=== PATIENT | female | born 1960 | race Caucasian/White ===

== ENCOUNTER → 2019-05-17 12:11 | Outpatient (BNVA) | payer BC, SELFPAY | PROVIDERS: Family Provider Family Medicine; PCP Internal Medicine Cardiovascular Disease; Visit Provider Internal Medicine Cardiovascular Disease | DX: R06.02 Shortness of breath (principal); I10 Essential (primary) hypertension; R00.2 Palpitations; R01.1 Cardiac murmur, unspecified; R07.9 Chest pain, unspecified | CPT/HCPCS: 80053; 83880; 84443 ==

== ENCOUNTER 2019-05-29 08:06 | Outpatient (CLI) | payer BC, SELFPAY ==
--- NOTE | 2019-05-29 08:00 | USCV_ITS ---
Thai Marci Age: 59 Gender: F : 1960 Exam Date: 05/29/2019 08:30 Ordering Phys: Ruel Joshi MD ([email or web address]) Technologist: Mora Mccullough Exam Location: [facility] [place] Indication: SHORTNESS OF BREATH BP: / HR: 92 Rhythm: Sinus Technical Quality: Adequate MEASUREMENTS (Male / Female) Normal Values 2D ECHO LV Diastolic Diameter PLAX 3.0 cm 4.2 - 5.9 / 3.9 - 5.3 cm LV Systolic Diameter PLAX 2.4 cm IVS Diastolic Thickness 1.5 cm 0.6 - 1.0 / 0.6 - 0.9 cm IVS Systolic Thickness 2.2 cm LVPW Diastolic Thickness 1.6 cm 0.6 - 1.0 / 0.6 - 0.9 cm LVPW Systolic Thickness 1.7 cm LVOT Diameter 2.0 cm LV Ejection Fraction 2D Teich 47.0 % LV Ejection Fraction MOD 2C 61.9 % LV Ejection Fraction 2C AL 63.7 % LA Diameter 3.6 cm LA Width 3.1 cm LA Height 4.8 cm RA Width 2.4 cm RA Height 4.1 cm M-MODE LV Diastolic Diameter MM 5.0 cm 4.2 - 5.9 / 3.9 - 5.3 cm LV Systolic Diameter MM 3.4 cm LV Ejection Fraction MM Teich 61.7 % IVS Diastolic Thickness MM 0.9 cm 0.6 - 1.0 / 0.6 - 0.9 cm IVS Systolic Thickness MM 1.1 cm LVPW Diastolic Thickness MM 0.6 cm 0.6 - 1.0 / 0.6 - 0.9 cm LVPW Systolic Thickness MM 1.3 cm Aortic Annulus Diameter 2.7 cm LA Ao Ratio MM 1.3 MV E Point Septal Separation 0.4 cm DOPPLER AV Peak Velocity 150.0 cm/s LVOT Peak Velocity 115.0 cm/s AV Area Cont Eq vti 2.5 cm squared AV Area Cont Eq pk 2.5 cm squared MV Peak Velocity 74.0 cm/s MV Area PHT 3.7 cm squared Mitral E to A Ratio 0.7 MV E' Velocity 11.0 cm/s Mitral E to MV E' Ratio 5.9 Mitral E to LV E' Lateral Ratio 4.5 Mitral E to LV E' Septal Ratio 8.3 TR Peak Velocity 145.0 cm/s TR Peak Gradient 8.4 mmHg Right Atrial Pressure 3.0 mmHg Pulmonary Artery Systolic Pressu 11.4 mmHg PV Peak Velocity 99.0 cm/s RV Acceleration Time 0.1 s FINDINGS Left Ventricle Normal left ventricular size and systolic function, EF 63 %. Moderate left ventricular hypertrophy. No regional wall motion abnormalities. Right Ventricle Normal right ventricular size and systolic function. Right Atrium Normal right atrial size. Left Atrium Mildly increased left atrial size. Mitral Valve Structurally normal mitral valve. Aortic Valve Thickened aortic valve. [id number] aortic valve regurgitation. Tricuspid Valve Structurally normal tricuspid valve. Pulmonic Valve Pulmonic valve not well visualized. Pericardium No pericardial effusion. Aorta Normal aortic annulus size. CONCLUSIONS Normal left ventricular size and systolic function, EF 63 %. Moderate left ventricular hypertrophy. No regional wall motion abnormalities. Mildly increased left atrial size. Thickened aortic valve. [id number] aortic valve regurgitation. There is no pericardial effusion. There are no intracardiac masses. No previous study is available for comparison. Dr Ruel Joshi MD [facility] (Electronically Signed) Final Date: 29 May 2019 09:47 S
== END 2019-05-29 08:07 | disposition home or self-care (01) ==
PROVIDERS: Family Provider Family Medicine; PCP Family Medicine; Visit Provider Internal Medicine Cardiovascular Disease
DX: I35.1 Nonrheumatic aortic (valve) insufficiency (principal); I51.7 Cardiomegaly; R01.1 Cardiac murmur, unspecified; R06.02 Shortness of breath
CPT/HCPCS: 93306

== ENCOUNTER 2019-07-12 08:16 | Outpatient (CLI) | payer BC, SELFPAY ==
[2019-07-12 08:47] VITALS: BMI 25.6
--- NOTE | 2019-07-12 08:48 | ECG_ITS ---
Lexiscan/sestamibi/sestamibi stress test intraprocedure shortess of breath; Chest pressure.Symptoms resoled by discharge PROCEDURE: At the baseline, the EKG revealed normal sinus rhythm with a some nonspecific ST changes. The baseline blood pressure was 132/87 mm Hg with a heart rate of 71 beats/min. Lexiscan was infused over a period of 20 seconds. A total of 0.4 milligrams of Lexiscan was infused. The stress phase was continued for a total of 5 minutes. Heart rate at the end of the stress phase was 89 with a blood pressure 147/88. The EKG at the peak infusion revealed no significant changes. Sestamibi was injected 20 seconds after the Lexiscan infusion. Blood pressure at the end of the recovery phase was 141/87 with a heart rate of 86 per minute. CONCLUSION: 1. No significant EKG changes with the LexiScan infusion 2. No LexiScan induced chest pain or cardiac arrhythmia 3. Normal blood pressure and heart rate response 4. Sestamibi/sestamibi perfusion scan pending; see separate report. Electronically Signed On 07-13-2019 6:39:19 CDT by Ruel Joshi M.D. [id number]
--- NOTE | 2019-07-12 08:48 | NMCV_ITS ---
NM portia perf SPECT r/s* [id number] Marci Andre Age: 59 Gender: F : 1960 Exam Date: 07/12/2019 08:48 Ordering Phys: Ruel Joshi MD ([email or web address]) Technologist: VIJAY Velasquez Exam Location: [facility] Indications: SHORTNESS OF BREATH STRESS TEST Please see separate stress test report in [facility] for full findings IMAGE PROTOCOL Rest/Stress 1 Lexiscan Day Radiopharmaceutical Dose (mCi) Administration Site Administered by Rest: Tc-99m 10.6 IV VIJAY Pruett Sestamibi Stress:Tc-99m 32.2 IV VIJAY Pruett Sestamibi Rest: 12-Jul-2019 60 Discovery 630 Stress: 12-Jul-2019 30 Discovery 630 0.4mg Lexiscan. Images obtained in supine and prone position. SPECT RESULTS Technical Quality: Excellent Raw Data Analysis: Normal Image Corrections: No attenuation or motion correction applied Summed Stress Score: 0 Summed Rest Score: 0 Summed Difference Score: 0 PERFUSION FINDINGS Uniform myocardial tracer uptake with no significant perfusion abnormalities FUNCTIONAL RESULTS (calculated via Gated SPECT) Stress Image LV EF (%): 93 Stress EDV (mL):61 TID: 0.68 Stress ESV (mL):4 FUNCTIONAL FINDINGS: Segmental wall motion analysis revealing no gross wall motion normalities IMPRESSIONS 1. Unremarkable myocardial perfusion imaging. 2. LV ejection fraction estimated to be 93%. 3. LV wall motion analysis revealing no gross wall motion normalities. 4. Normal LV volume. No significant coronary ischemia, based on the above findings . Dr Ruel Joshi MD FAC (Electronically Signed) Final Date: 12 July 2019 18:47 S
[2019-07-12] MEDS: regadenoson 0.4 Mg/5 ml Syringe IVP (10:14)
[2019-07-12 10:23] VITALS: BP 147/97; PULSE 93
== END 2019-07-12 08:17 | disposition home or self-care (01) ==
LOC: CDL 08:21
PROVIDERS: Family Provider Family Medicine; PCP Family Medicine; Visit Provider Internal Medicine Cardiovascular Disease
DX: I11.0 Hypertensive heart disease with heart failure (principal); I50.32 Chronic diastolic (congestive) heart failure
CPT/HCPCS: 78452; 93017; A9500; J2785

== ENCOUNTER 2019-08-10 09:18 | Outpatient (CLI) | payer BC, SELFPAY ==
--- NOTE | 2019-08-10 10:00 | CT_ITS ---
WS: [id number] CT CHEST ANGIOGRAPHY WITH REFORMATS HISTORY: Rule out PE TECHNIQUE: Contiguous axial images are obtained through the chest during arterial injection of intrav enous contrast. Images are reconstructed to evaluate the pulmonary arteries. MIP imaging also reviewe d. All CT scans at [facility] use at least one of these dose optimization techniques: aut omated exposure control; mA and/or kV adjustment per patient size (includes targeted exams where dose is matched to clinical indication); or iterative reconstruction. CONTRAST: Omnipaque 300; 95 mL IV. DLP: 658.36 mGycm COMPARISON: None available. Good opacification of the pulmonary arteries. No filling defects or pulmonary embolism. Pulmonary art sherry size is normal. Mild atherosclerosis aorta. Heart size is normal. No pericardial or pleural effus ions. Benign granuloma RIGHT upper lobe. No pneumonia or mass. No mediastinal or hilar adenopathy. Moderate coronary artery atherosclerosis. Small hiatal hernia. Postsurgical changes at the GE junction. Visualized upper abdominal structures are negative for acute process. Increase in thoracic kyphosis. CT/CT angio chest [id number] IMPRESSION: 1. No pulmonary embolism. 2. No pulmonary nodule or pneumonia. 3. Mild atherosclerosis aorta. 4. Small hiatal hernia.
[2019-08-10 10:32] LABS: Blood Urea Nitrogen 16 mg/dL (8-23); Glomerular Filtration Rate 56.4 mL/min (90-130)
[2019-08-10] MEDS: iohexol 350 mg/mL 100 mL Btl IV (10:38)
== END 2019-08-10 09:19 | disposition home or self-care (01) ==
LOC: RADWPI 09:22
PROVIDERS: Family Provider Family Medicine; PCP Family Medicine; Visit Provider Internal Medicine Cardiovascular Disease
DX: R06.02 Shortness of breath (principal); I70.0 Atherosclerosis of aorta; K44.9 Diaphragmatic hernia without obstruction or gangrene
CPT/HCPCS: 71275; 82565; 84520

== ENCOUNTER → 2019-09-19 16:25 | Outpatient (BNVA) | payer BC, SELFPAY | PROVIDERS: Family Provider Family Medicine; PCP Family Medicine; Visit Provider Internal Medicine Cardiovascular Disease | DX: I11.0 Hypertensive heart disease with heart failure (principal); I50.32 Chronic diastolic (congestive) heart failure; R06.02 Shortness of breath | CPT/HCPCS: 80048; 83880 ==

== ENCOUNTER 2020-02-05 16:01 | Emergency (ER) | payer BC, SELFPAY ==
[2020-02-05 16:16] VITALS: BP 137/81; PULSE 92; RESP 18; TEMP 39.2; O2SAT 94; BMI 25.7
--- NOTE | 2020-02-05 17:19 | XR_ITS ---
WS: [id number] XR chest 1V portable [id number] REASON FOR EXAM: sob FINDINGS: Thoracic aorta and heart are within normal limits. Increased lucency over the left mid and lower mediastinum which appears to be due to extension of rig ht lung across the midline. This is accounted for by a large amount of lung within the azygos esophag eal recess on the right on previous CT scan of 08/10/2019. With the exception of mild increase in heart size and the chest is unchanged compared to previous exa mination of 02/11/2010. XR/XR chest 1V portable [id number] IMPRESSION: No acute chest abnormality.
--- NOTE | 2020-02-05 17:26 | ECG_ITS ---
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 Measurements Intervals [place] Rate: 98 P: 57 AK: 126 QRS: 36 QRSD: 82 T: 40 QT: 330 QTc: 422 Interpretive Statements SINUS RHYTHM MINIMAL ST DEPRESSION [0.025+ mV ST DEPRESSION] No previous ECG available for comparison Electronically Signed On 02-06-2020 20:52:22 CDT by Ruel Joshi M.D. [id number] f
[2020-02-05 18:47] LABS: Basophils % 0.5 %; Eosinophils # 0.1 10^3/uL (0.0-0.8); Eosinophils % 0.6 %; Hematocrit 42.3 % (37.0-47.0); Hemoglobin 13.5 g/dL (11.5-15.3); Lymphocytes # 0.7 10^3/uL (0.8-4.8); Lymphocytes % 8.8 %; Mean Corpuscular HGB Conc 31.9 g/dL (30.0-36.0); Mean Corpuscular Hemoglobin 30.3 pg (28.0-34.0); Mean Corpuscular Volume 95.1 fL (81-99); Mean Platelet Volume 9.5 fL (7.4-10.4); Monocytes % 11.5 %; Neutrophils # 6.55 10^3/uL (1.8-7.7); Nucleated Red Blood Cells % 0 %; Platelet Count 195 10^3/cmm (130-400); Red Blood Count 4.45 10^6/uL (4.1-5.3); Red Cell Distribution Width 11.8 % (12.1-15.1); White Blood Count 8.4 10^3/uL (4.0-10.0)
[2020-02-05] MEDS: acetaminophen 500 mg Tablet 1000 MG PO (19:05)
[2020-02-05] MEDS: sodium chloride 0.9% 1,000 ML 999 ML IV (19:06)
[2020-02-05 19:10] VITALS: BP 123/84; PULSE 94; RESP 18; O2SAT 97
--- NOTE | 2020-02-05 19:32 | W.ED.SOB ---
HPI - SOB/Dyspnea General: Chief Complaint: Shortness of Breath/Dyspnea Stated Complaint: SOB, CHEST PAIN, FEVER, COVID SYMPTOMS Time Seen by Provider: 02/05/20 18:23 Source: patient Mode of arrival: ambulatory Limitations: no limitations History of Present Illness: HPI Narrative: 60-year-old female states she tested positive for COVID 3 days ago. States she has been having fevers along with cough and some shortness of breath. She states she just does not feel well. Patient denies any worsening or improving factors. She is resting comfortably here and is 97% on room air. She has had no vomiting or diarrhea. Associated symptoms: Reports fever(s); Deny abdominal pain, chest pain, nausea or vomiting Review of Systems Const: Reports: fever(s); Denies: chills, body aches or change in appetite Eyes: Denies: blurry vision or eye discomfort ENMT: Denies: throat pain or dental pain Card: Denies: chest pain Resp: Reports: dyspnea and non-productive cough GI: Denies: abdominal pain, nausea, vomiting or diarrhea : Denies: dysuria Musc: Denies: neck pain or back pain Skin/Breast: Denies: rash Neuro: Denies: headache(s) Psych: Denies: depression Kaushal/Lymph: Denies: easy bruising All/Imm: Denies: urticaria PFSH ED PFSH: Medical History Aortic valve regurgitation, nonrheumatic Detached retina Finger pain Heart murmur Hypertension Hypertensive CHF (congestive heart failure) Osteoporosis Palpitations Shortness of breath Stress fracture Surgical History H/O eye surgery H/O: hysterectomy History of ankle surgery History of gastric bypass History of hernia repair History of left knee replacement Status post ASA (advanced surface ablation) surgery PRK (photorefractive keratectomy) Family History Other Aneurysm CAD (coronary artery disease) Family history of premature coronary artery disease Hypertension Social History Smoking and tobacco status: former smoker Alcohol intake: never Physical Exam Const: COMMON NORMALS: no acute distress, patient oriented x3 and healthy appearing HENMT: COMMON NORMALS: normocephalic and atraumatic HEAD & SCALP: normocephalic and atraumatic Eye: COMMON NORMALS: Equal, round and reactive pupils present and EOMs intact bilaterally PUPIL: Yes Equal, round and reactive pupils present Neck/C-Spine: COMMON NORMALS: full ROM and supple Chest: COMMONS NORMALS: normal inspection of the chest and normal palpation of entire chest wall Resp: COMMON NORMALS: normal respiratory effort, No retractions, No use of accessory muscles and clear to auscultation bilaterally AUSCULTATION: clear to auscultation bilaterally Cardio: COMMON NORMALS: regular rate, regular rhythm and No murmurs present (Cardio) RATE: regular rate RHYTHM: regular rhythm GI: COMMON NORMALS: Normal to inspection, nondistended, normoactive bowel sounds present, Soft to palpation, non-tender and no masses PALPATION: Yes Soft to palpation Extremity: COMMON NORMALS: normal to inspection and full ROM Neuro: COMMON NORMALS: patient oriented x3, moves all extremities and no focal motor deficits Psych: COMMON NORMALS: mental status grossly normal, Normal thought process present and cooperative THOUGHT PROCESS: Normal thought process present Skin: COMMON NORMALS: no rashes or lesions noted and no wounds GENERAL SKIN EXAM: no rashes or lesions noted Course Vital Signs: Vital signs: Vital Signs Temperature 98.0 F 02/05/20 20:39 Pulse Rate 91 02/05/20 21:10 Respiratory Rate 19 H 02/05/20 21:10 Blood Pressure 120/82 02/05/20 21:10 Pulse Oximetry 97 02/05/20 21:10 MDM - SOB/Dyspnea MDM Narrative: Medical decision making narrative: Marci presents with fever cough along with chills. She does have a significant urinary tract infection. She is no vomiting and her white count here is normal. We will start her on Cipro along with nausea meds. We will set her up for COVID still and she is to self quarantine until result is back. She has no signs of pneumonia. She is stable for discharge and is to follow-up PCP and return if worsening. She understands agrees to plan. Lab Data: Labs: Lab Results 02/05/20 02/05/20 02/05/20 Range/Units 18:36 18:36 18:36 WBC 8.4 (4.0-10.0) 10^3/ uL RBC 4.45 (4.1-5.3) 10^6/u L Hgb 13.5 (11.5-15.3) g/dL Hct 42.3 (37.0-47.0) % MCV 95.1 (81-99) fL MCH 30.3 (28.0-34.0) pg MCHC 31.9 (30.0-36.0) g/dL RDW 11.8 L (12.1-15.1) % Plt Count 195 (130-400) 10^3/c mm MPV 9.5 (7.4-10.4) fL Neut % (Auto) 78.0 % Lymph % (Auto) 8.8 % [place] % (Auto) 11.5 % Eos % (Auto) 0.6 % Baso % (Auto) 0.5 % Neut # (Auto) 6.55 (1.8-7.7) 10^3/u L Lymph # (Auto) 0.7 L (0.8-4.8) 10^3/u L [place] # (Auto) 1.0 H (0.2-0.9) 10^3/u L Eos # (Auto) 0.1 (0.0-0.8) 10^3/u L Baso # (Auto) 0.0 (0.0-0.1) 10^3/u L Nucleated RBC % (a uto) 0 % Nucleated RBCs # 0.0 /100WBC PT 12.10 (12.1-14.9) SECO NDS INR 0.87 (0.8-1.2) Fibrinogen 380 (174-498) mg/dL D-Dimer 0.57 (0-0.59) ug/mIFE U Sodium 137 (136-145) mmol/L Potassium 4.5 (3.5-5.1) mmol/L Chloride 98 (98-107) mmol/L Carbon Dioxide 26 (22-29) mmol/L Anion Gap 17.5 (5-19) BUN 18 (8-23) mg/dL Creatinine 0.9 (0.5-0.9) mg/dL GFR Calculation 63.4 L (90-130) mL/min Glucose 106 (65-115) mg/dL Calculated Osmolal ity 286 (285-295) mOsm/k g Lactic Acid (0.5-2.2) mmol/L Calcium 9.7 (8.5-10.5) mg/dL Magnesium 2.1 (1.7-2.3) mg/dL Total Bilirubin 0.2 (0.15-1.2) mg/dL AST 19 (0-32) U/L ALT 12 (0-33) U/L Alkaline Phosphata se 151 H (35-105) IU/L Troponin T Gen 5 n g/L (0-10) ng/L NT-Pro-B Natriuret Pep 670 H (0-125) pg/mL Total Protein 7.0 (6.6-8.7) g/dL Albumin 4.5 (3.5-5.2) g/dL Globulin 2.5 (1.3-4.6) g/dL Urine Color (Yellow) Urine Appearance (CLEAR) Urine pH (5-7) Ur Specific Gravit y (1.005-1.030) Urine Protein (Negative) Urine Glucose (UA) (Normal) Urine Ketones (Negative) Urine Blood (Negative) Urine Nitrate (Negative) Urine Bilirubin (Negative) Urine Urobilinogen (Negative) mg/dL Ur Leukocyte Viky ase (Negative) Urine RBC (0-2) /hpf Urine WBC (0-5) /hpf Ur Squamous Epith Cells (0-5) /hpf Amorphous Sediment Urine Bacteria (NONE) /hpf Influenza Type A A g (Negative) Influenza Type B A g (Negative) 02/05/20 02/05/20 02/05/20 Range/Units 18:36 18:36 19:15 WBC (4.0-10.0) 10^3/ uL RBC (4.1-5.3) 10^6/u L Hgb (11.5-15.3) g/dL Hct (37.0-47.0) % MCV (81-99) fL MCH (28.0-34.0) pg MCHC (30.0-36.0) g/dL RDW (12.1-15.1) % Plt Count (130-400) 10^3/c mm MPV (7.4-10.4) fL Neut % (Auto) % Lymph % (Auto) % [place] % (Auto) % Eos % (Auto) % Baso % (Auto) % Neut # (Auto) (1.8-7.7) 10^3/u L Lymph # (Auto) (0.8-4.8) 10^3/u L [place] # (Auto) (0.2-0.9) 10^3/u L Eos # (Auto) (0.0-0.8) 10^3/u L Baso # (Auto) (0.0-0.1) 10^3/u L Nucleated RBC % (a uto) % Nucleated RBCs # /100WBC PT (12.1-14.9) SECO NDS INR (0.8-1.2) Fibrinogen (174-498) mg/dL D-Dimer (0-0.59) ug/mIFE U Sodium (136-145) mmol/L Potassium (3.5-5.1) mmol/L Chloride (98-107) mmol/L Carbon Dioxide (22-29) mmol/L Anion Gap (5-19) BUN (8-23) mg/dL Creatinine (0.5-0.9) mg/dL GFR Calculation (90-130) mL/min Glucose (65-115) mg/dL Calculated Osmolal ity (285-295) mOsm/k g Lactic Acid 0.8 (0.5-2.2) mmol/L Calcium (8.5-10.5) mg/dL Magnesium (1.7-2.3) mg/dL Total Bilirubin (0.15-1.2) mg/dL AST (0-32) U/L ALT (0-33) U/L Alkaline Phosphata se (35-105) IU/L Troponin T Gen 5 n g/L 8 (0-10) ng/L NT-Pro-B Natriuret Pep (0-125) pg/mL Total Protein (6.6-8.7) g/dL Albumin (3.5-5.2) g/dL Globulin (1.3-4.6) g/dL Urine Color (Yellow) Urine Appearance (CLEAR) Urine pH (5-7) Ur Specific Gravit y (1.005-1.030) Urine Protein (Negative) Urine Glucose (UA) (Normal) Urine Ketones (Negative) Urine Blood (Negative) Urine Nitrate (Negative) Urine Bilirubin (Negative) Urine Urobilinogen (Negative) mg/dL Ur Leukocyte Viky ase (Negative) Urine RBC (0-2) /hpf Urine WBC (0-5) /hpf Ur Squamous Epith Cells (0-5) /hpf Amorphous Sediment Urine Bacteria (NONE) /hpf Influenza Type A A g Negative (Negative) Influenza Type B A g Negative (Negative) 02/05/20 Range/Units 20:36 WBC (4.0-10.0) 10^3/ uL RBC (4.1-5.3) 10^6/u L Hgb (11.5-15.3) g/dL Hct (37.0-47.0) % MCV (81-99) fL MCH (28.0-34.0) pg MCHC (30.0-36.0) g/dL RDW (12.1-15.1) % Plt Count (130-400) 10^3/c mm MPV (7.4-10.4) fL Neut % (Auto) % Lymph % (Auto) % [place] % (Auto) % Eos % (Auto) % Baso % (Auto) % Neut # (Auto) (1.8-7.7) 10^3/u L Lymph # (Auto) (0.8-4.8) 10^3/u L [place] # (Auto) (0.2-0.9) 10^3/u L Eos # (Auto) (0.0-0.8) 10^3/u L Baso # (Auto) (0.0-0.1) 10^3/u L Nucleated RBC % (a uto) % Nucleated RBCs # /100WBC PT (12.1-14.9) SECO NDS INR (0.8-1.2) Fibrinogen (174-498) mg/dL D-Dimer (0-0.59) ug/mIFE U Sodium (136-145) mmol/L Potassium (3.5-5.1) mmol/L Chloride (98-107) mmol/L Carbon Dioxide (22-29) mmol/L Anion Gap (5-19) BUN (8-23) mg/dL Creatinine (0.5-0.9) mg/dL GFR Calculation (90-130) mL/min Glucose (65-115) mg/dL Calculated Osmolal ity (285-295) mOsm/k g Lactic Acid (0.5-2.2) mmol/L Calcium (8.5-10.5) mg/dL Magnesium (1.7-2.3) mg/dL Total Bilirubin (0.15-1.2) mg/dL AST (0-32) U/L ALT (0-33) U/L Alkaline Phosphata se (35-105) IU/L Troponin T Gen 5 n g/L (0-10) ng/L NT-Pro-B Natriuret Pep (0-125) pg/mL Total Protein (6.6-8.7) g/dL Albumin (3.5-5.2) g/dL Globulin (1.3-4.6) g/dL Urine Color Yellow (Yellow) Urine Appearance Sl hazy (CLEAR) Urine pH 5 (5-7) Ur Specific Gravit y 1.015 (1.005-1.030) Urine Protein Neg (Negative) Urine Glucose (UA) Norm (Normal) Urine Ketones Negative (Negative) Urine Blood Neg (Negative) Urine Nitrate Positive H (Negative) Urine Bilirubin Neg (Negative) Urine Urobilinogen Norm (Negative) mg/dL Ur Leukocyte Viky ase Negative (Negative) Urine RBC 0-4 H (0-2) /hpf Urine WBC 0-4 H (0-5) /hpf Ur Squamous Epith Cells 0-4 H (0-5) /hpf Amorphous Sediment Not Reportable Urine Bacteria 3+ H (NONE) /hpf Influenza Type A A g (Negative) Influenza Type B A g (Negative) Imaging Data^: CXR: Attestation: I personally reviewed and interpreted this imaging study as follows: Radiologist's impression: No acute abnormality EKG Data^: EKG 1: Attestation: I personally reviewed and interpreted this EKG as follows: EKG Interpretation Date: 02/05/20 EKG interpretation time: 18:46 Interpretation: nsr hr [address] or t wave abnormalities qrs 82 qtc 3385 Discharge Plan Discharge Patient Disposition: Home Clinical Impression: Urinary tract infection, COVID-19 virus test result unknown Condition: Stable Prescriptions: New Zofran 4 mg tablet 4 mg PO QID PRN (Reason: nausea and vomiting) Qty: 14 RF: 0 Cipro 500 mg tablet 500 mg PO Q12H Qty: 14 RF: 0 No Action diphenhydramine HCl [Benadryl] 25 mg capsule 25 - 50 mg PO PRN RF: 0 hydrocodone-acetaminophen 10-325 mg tablet 1 - 2 tab PO Q4H PRN (Reason: Pain) RF: 0 lansoprazole 30 mg capsule,delayed release(DR/EC) 30 mg PO DAILY RF: 0 isosorbide dinitrate 10 mg tablet 10 mg PO BID 30 Days Qty: 60 RF: 11 furosemide 40 mg tablet 40 mg PO DAILY Qty: 90 RF: 1 potassium chloride [Klor-Con M20] 20 mEq tablet,ER particles/crystals 20 meq PO DAILY Qty: 90 RF: 1 carvedilol 12.5 mg tablet 12.5 mg PO BID 90 Days Qty: 180 RF: 3 Tylenol Extra Strength 500 mg Tablet 500 - 1,000 mg PO PRN RF: 0 cyanocobalamin (vitamin B-12) 1,000 mcg/mL solution See Rx Instructions .ROUTE .COMPLEX RF: 0 iron 325 mg (65 mg iron) Tablet 325 mg PO DAILY RF: 0 Colace 100 mg Capsule 100 mg PO DAILY PRN (Reason: unknown) RF: 0 Caltrate Softchews 1 tab PO DAILY RF: 0 Discharge Orders: Discharge Order (Routine); Ordered 02/05/20 Ordered By: Torri Diez Referrals: Kevin Bell MD [Primary Care Provider] - 1-3 days Discharge Diet: Advance as tolerated Discharge Activity: Resume usual activity Patient Instructions: Urinary Tract Infection in Women (ED) Coding Level of Care Code ED Tool Room Attendant for Otilio Fwd Exam Comprehensive
[2020-02-05 19:35] LABS: INR 0.87 (0.8-1.2)
[2020-02-05 19:36] LABS: Fibrinogen 380 mg/dL (174-498)
[2020-02-05 19:39] LABS: D Dimer 0.57 ug/mIFEU (0-0.59)
[2020-02-05 19:41] LABS: Lactic Sepsis W/Reflex 0.8 mmol/L (0.5-2.2)
[2020-02-05 19:44] LABS: Troponin T (5th) Once 8 ng/L (0-10)
[2020-02-05 19:49] LABS: Alanine Aminotransferase 12 U/L (0-33); Albumin Level 4.5 g/dL (3.5-5.2); Alkaline Phosphatase 151 IU/L (35-105); Anion Gap 17.5 (5-19); Aspartate Amino Transferase 19 U/L (0-32); Blood Urea Nitrogen 18 mg/dL (8-23); Calcium 9.7 mg/dL (8.5-10.5); Carbon Dioxide 26 mmol/L (22-29); Chloride 98 mmol/L (98-107); Globulin 2.5 g/dL (1.3-4.6); Glomerular Filtration Rate 63.4 mL/min (90-130); Glucose 106 mg/dL (65-115); Magnesium 2.1 mg/dL (1.7-2.3); NT Pro B Type Natriuretic Pept 670 pg/mL (0-125); Osmolality Calculated 286 mOsm/kg (285-295); Potassium 4.5 mmol/L (3.5-5.1); Sodium 137 mmol/L (136-145); Total Bilirubin 0.2 mg/dL (0.15-1.2)
[2020-02-05 20:05] LABS: Influenza A by IFA Negative (Negative)
[2020-02-05 20:06] LABS: Influenza B by IFA Negative (Negative)
[2020-02-05 20:39] VITALS: BP 115/79; PULSE 91; RESP 22; TEMP 36.7; O2SAT 99
[2020-02-05 21:01] LABS: Glucose Urine UA Norm (Normal); Protein Urine Neg (Negative); Specific Gravity, Urine 1.015 (1.005-1.030); Urine Appearance SL Hazy (CLEAR); Urine Color Yellow (Yellow); pH Urine 5 (5-7)
[2020-02-05 21:02] LABS: Add Urine Culture? Yes; Add Urine Microscopic? YES; Bacteria Urine 3+ /hpf; Bilirubin Urine Neg (Negative); Blood Urine Neg (Negative); Ketones Urine Negative (Negative); Leukocyte Esterase Urine Negative (Negative); Nitrate Urine Positive (Negative); RBC Urine 0-4 /hpf (0-2); Squamous Epithelial Cell Urine 0-4 /hpf (0-5); Urobilinogen Urine Norm (Negative); WBC Urine 0-4 /hpf (0-5)
[2020-02-05 21:10] VITALS: BP 120/82; PULSE 91; RESP 19; O2SAT 97
[2020-02-05] MEDS: cefTRIAXone 1,000 MG in sodium chloride 0.9% (plus) 50 ML 100 MG IV (21:27)
[2020-02-05 22:11] VITALS: BP 117/72; PULSE 83; RESP 18; O2SAT 99
[2020-02-05 23:10] LABS: Procalcitonin 0.05 ng/mL (0-0.5)
[2020-02-05 23:29] LABS: C Reactive Protein 4.9 mg/L (0.0-4.9); Ferritin 169 ng/mL (15-150)
[2020-02-08 03:22] LABS: Quest SARS-CoV-2 RNA DETECTED (NOT DETECTED)
--- NOTE | 2020-02-08 08:27 | PC.NURSE ---
Pt called and notified of positive COVID result.
== END 2020-02-05 22:11 | disposition home or self-care (01) ==
PROVIDERS: Nurse Practitioner Family; Emergency Provider Emergency Medicine; Family Provider Family Medicine; PCP Family Medicine; Referring Provider Internal Medicine Cardiovascular Disease
DX: U07.1 COVID-19 (principal); N39.0 Urinary tract infection, site not specified; I11.0 Hypertensive heart disease with heart failure; I50.9 Heart failure, unspecified; Z87.891 Personal history of nicotine dependence
CPT/HCPCS: 12345; 71045; 80053; 81001; 82728; 83605; 83735; 83880; 84145; 84484; 85025; 85378; 85384; 85610; 86140; 87077; 87086; 87186; 87635; 87804; 93005; 96365; 99284; J0696; J7030

== ENCOUNTER 2020-08-28 15:28 | Outpatient (CLI) | payer BC, SELFPAY ==
--- NOTE | 2020-08-28 15:45 | USCV_ITS ---
Thai Marci Age: 60 Gender: F : 1960 Exam Date: 08/28/2020 15:40 Ordering Phys: Ruel Joshi MD ([email or web address]) Technologist: Sandy Doty Exam Location: [facility] [place] [facility] [place] Indication: AI BP: / HR: 71 Rhythm: Sinus Technical Quality: Adequate MEASUREMENTS (Male / Female) Normal Values 2D ECHO LV Diastolic Diameter PLAX 3.7 cm 4.2 - 5.9 / 3.9 - 5.3 cm LV Systolic Diameter PLAX 2.8 cm LV Chamber Size 4.3 cm IVS Diastolic Thickness 1.2 cm 0.6 - 1.0 / 0.6 - 0.9 cm IVS Systolic Thickness 1.8 cm LVPW Diastolic Thickness 1.9 cm 0.6 - 1.0 / 0.6 - 0.9 cm LVPW Systolic Thickness 1.9 cm RV Chamber Size 2.5 cm LVOT Diameter 2.0 cm LV Ejection Fraction 2D Teich 48.9 % LV Ejection Fraction MOD 2C 56.5 % LV Ejection Fraction 2C AL 58.3 % LA Diameter 4.0 cm LA Width 4.3 cm LA Height 5.4 cm RA Width 2.1 cm RA Height 3.7 cm Aorta at Sinotubular Diameter 2.7 cm M-MODE LV Diastolic Diameter MM 5.9 cm 4.2 - 5.9 / 3.9 - 5.3 cm LV Systolic Diameter MM 3.5 cm LV Ejection Fraction MM Teich 70.8 % IVS Diastolic Thickness MM 1.0 cm 0.6 - 1.0 / 0.6 - 0.9 cm IVS Systolic Thickness MM 1.3 cm LVPW Diastolic Thickness MM 1.1 cm 0.6 - 1.0 / 0.6 - 0.9 cm LVPW Systolic Thickness MM 1.5 cm Aortic Annulus Diameter 2.9 cm LA Ao Ratio MM 1.4 MV E Point Septal Separation 0.9 cm DOPPLER AV Peak Velocity 227.0 cm/s LVOT Peak Velocity 143.0 cm/s AV Area Cont Eq vti 1.8 cm squared AV Area Cont Eq pk 2.1 cm squared MV Area PHT 3.7 cm squared Mitral E to A Ratio 1.4 MV E' Velocity 48.5 cm/s Mitral E to MV E' Ratio 8.2 Mitral E to LV E' Lateral Ratio 7.5 Mitral E to LV E' Septal Ratio 9.1 TR Peak Velocity 262.0 cm/s TR Peak Gradient 27.5 mmHg TV Peak E Velocity 60.0 cm/s Right Atrial Pressure 3.0 mmHg Pulmonary Artery Systolic Pressu 30.5 mmHg PV Peak Velocity 76.0 cm/s RV Acceleration Time 0.1 s RV Ejection Time 0.3 s RV AcT/ET 0.4 FINDINGS Left Ventricle Normal left ventricular size and systolic function, EF 60 %. Mild left ventricular hypertrophy. No regional wall motion abnormalities. Right Ventricle The right ventricle is normal in size and function. Right Atrium The right atrium is normal in size. Left Atrium Mildly increased left atrial size. Mitral Valve Moderate mitral valve regurgitation. Aortic Valve Thickened aortic valve. Mild aortic valve regurgitation. Tricuspid Valve Trace tricuspid valve regurgitation. Pulmonic Valve No gross abnormalities noted Pericardium Normal pericardium without effusion. Aorta Normal ascending aorta dimension. CONCLUSIONS Normal left ventricular size and systolic function, EF 60 %. Mild left ventricular hypertrophy. No regional wall motion abnormalities. Mildly increased left atrial size. Moderate mitral valve regurgitation. Thickened aortic valve. Mild aortic valve regurgitation. Trace tricuspid valve regurgitation. There is no pericardial effusion. There are no intracardiac masses. (Compared to the study from 05/29/2019, the aortic regurgitation appears to be less severe. There is development of mitral regurgitation. This could be related to technical issues) Dr Ruel Joshi MD [facility] (Electronically Signed) Final Date: 02 Sep 2020 09:38 S
== END 2020-08-28 15:29 | disposition home or self-care (01) ==
LOC: RAD 15:31
PROVIDERS: PCP Family Medicine; Visit Provider Internal Medicine Cardiovascular Disease
DX: I08.3 Combined rheumatic disorders of mitral, aortic and tricuspid valves (principal)
CPT/HCPCS: 80048; 83880; 93306

== ENCOUNTER → 2021-02-03 11:14 | Outpatient (BNVA) | payer BC, SELFPAY | PROVIDERS: PCP Family Medicine; Visit Provider Internal Medicine Cardiovascular Disease | DX: I11.0 Hypertensive heart disease with heart failure (principal); I50.33 Acute on chronic diastolic (congestive) heart failure; R06.02 Shortness of breath; I35.1 Nonrheumatic aortic (valve) insufficiency | CPT/HCPCS: 80048; 83880 ==

== ENCOUNTER → 2021-04-04 11:48 | Outpatient (BNVA) | payer BC, SELFPAY | PROVIDERS: PCP Family Medicine; Visit Provider Internal Medicine Cardiovascular Disease | DX: I11.0 Hypertensive heart disease with heart failure (principal); I50.32 Chronic diastolic (congestive) heart failure | CPT/HCPCS: 80048; 83880 ==

== ENCOUNTER → 2021-10-02 11:37 | Outpatient (BNVA) | payer BC, SELFPAY | PROVIDERS: PCP Family Medicine; Visit Provider Internal Medicine Cardiovascular Disease | DX: I11.0 Hypertensive heart disease with heart failure (principal); I50.32 Chronic diastolic (congestive) heart failure; I50.33 Acute on chronic diastolic (congestive) heart failure; R06.02 Shortness of breath; I35.1 Nonrheumatic aortic (valve) insufficiency | CPT/HCPCS: 80048; 83880 ==

== ENCOUNTER 2022-05-11 08:53 | Outpatient (CLI) | payer BC, SELFPAY ==
--- NOTE | 2022-05-11 08:45 | USCV_ITS ---
Thai Marci Age: 62 Gender: F : 1960 Exam Date: 05/11/2022 09:26 Ordering Phys: Ruel Joshi MD ([email or web address]) Technologist: Tomas Pedro [place] [facility] [place]ication: AR/MR BP: 146 / 100 HR: 71 Rhythm: Sinus Technical Quality: Adequate MEASUREMENTS (Male / Female) Normal Values 2D ECHO LV Diastolic Diameter PLAX 3.8 cm 4.2 - 5.9 / 3.9 - 5.3 cm LV Systolic Diameter PLAX 1.8 cm IVS Diastolic Thickness 0.8 cm 0.6 - 1.0 / 0.6 - 0.9 cm IVS Systolic Thickness 1.3 cm LVPW Diastolic Thickness 0.9 cm 0.6 - 1.0 / 0.6 - 0.9 cm LVPW Systolic Thickness 1.2 cm LVOT Diameter 2.0 cm LV Ejection Fraction 2D Teich 84.6 % LV Ejection Fraction MOD 2C 72.7 % LV Ejection Fraction 2C AL 73.0 % LA Diameter 3.4 cm LA Width 4.2 cm LA Height 5.7 cm RA Width 3.9 cm RA Height 4.9 cm Aorta at Sinotubular Diameter 2.5 cm IVC Diameter 1.7 cm M-MODE Aortic Annulus Diameter 3.0 cm LA Ao Ratio MM 1.1 MV E Point Septal Separation 0.5 cm DOPPLER AV Peak Velocity 265.0 cm/s LVOT Peak Velocity 152.0 cm/s AV Area Cont Eq vti 2.1 cm squared AV Area Cont Eq pk 1.8 cm squared MV Peak Velocity 119.0 cm/s MV Area PHT 4.9 cm squared Mitral E to A Ratio 1.2 MV E' Velocity 57.5 cm/s Mitral E to MV E' Ratio 9.3 Mitral E to LV E' Lateral Ratio 7.2 Mitral E to LV E' Septal Ratio 13.2 TR Peak Velocity 325.9 cm/s TR Peak Gradient 42.5 mmHg TR Mean Velocity 272.1 cm/s TR Mean Gradient 30.8 mmHg TR Velocity Time Integral 84.9 cm Right Atrial Pressure 3.0 mmHg Pulmonary Artery Systolic Pressu 45.5 mmHg PV Peak Velocity 94.7 cm/s RV Acceleration Time 0.1 s RV Ejection Time 0.3 s RV AcT/ET 0.4 FINDINGS Left Ventricle Normal left ventricular size and systolic function, EF 75 %. No regional wall motion abnormalities. Right Ventricle The right ventricle is normal in size and function. Right Atrium The right atrium is normal in size. Left Atrium Mildly increased left atrial size. Mitral Valve Mild-moderate mitral valve regurgitation. Aortic Valve Thickened aortic valve. Mild aortic valve regurgitation. Mild aortic valve stenosis, mean gradient 13.6 mmHg, STEPHANIE 2.1 cm squared. Tricuspid Valve Mild tricuspid valve regurgitation. Pulmonic Valve No gross abnormalities noted Pericardium Normal pericardium without effusion. Aorta Normal ascending aorta dimension. IVC Normal inferior vena cava. CONCLUSIONS Normal left ventricular size and systolic function, EF 75 %. No regional wall motion abnormalities. Mildly increased left atrial size. Mild-moderate mitral valve regurgitation. Thickened aortic valve. Mild aortic valve regurgitation. Mild aortic valve stenosis, mean gradient 13.6 mmHg, STEPHANIE 2.1 cm squared. Mild tricuspid valve regurgitation. Estimated pulmonary artery peak systolic pressure was 46 mmHg There is no pericardial effusion. There are no intracardiac masses. Compared to the study from 08/28/2020, there is development of mild aortic valve stenosis Dr Ruel Joshi MD FAC (Electronically Signed) Final Date: 11 May 2022 12:43 S
== END 2022-05-11 08:54 | disposition home or self-care (01) ==
PROVIDERS: PCP Family Medicine; Visit Provider Internal Medicine Cardiovascular Disease
DX: I08.3 Combined rheumatic disorders of mitral, aortic and tricuspid valves (principal)
CPT/HCPCS: 93306

== ENCOUNTER → 2022-10-22 10:38 | Outpatient (BNVA) | payer BC, SELFPAY | PROVIDERS: PCP Family Medicine; Visit Provider Specialist | DX: I08.0 Rheumatic disorders of both mitral and aortic valves (principal); I11.0 Hypertensive heart disease with heart failure; R01.1 Cardiac murmur, unspecified; I35.1 Nonrheumatic aortic (valve) insufficiency; R00.2 Palpitations; I10 Essential (primary) hypertension; R07.9 Chest pain, unspecified | CPT/HCPCS: 80048 ==

== ENCOUNTER 2022-11-11 08:34 | Outpatient (CLI) | payer BC, SELFPAY ==
[2022-11-11 08:43] VITALS: BMI 26.6
--- NOTE | 2022-11-11 08:44 | ECG_ITS ---
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 Interpretive Statements NAME OF STUDY: LEXISCAN SESTAMIBI STRESS TEST INDICATION: Chest Pain PROCEDURE: At the baseline, the blood pressure was 158/106 mmHg with a heart rate of 71 bpm. The electrocardiogram showed sinus rhythm, normal axis with normal ST and T's. The Lexiscan was infused over a period of 20 seconds. A total of 0.4 milligrams of Lexiscan was infused. The stress phase was continued for a total of 5 minutes. Heart rate at the end of the stress phase was 89 bpm with a blood pressure 139/97 mmHg. The EKG at the peak infusion revealed no significant ST-T wave changes. Sestamibi was injected 20 seconds after the Lexiscan infusion. Blood pressure at the end of the recovery phase was 159/110 mmHg with a heart rate of 87 beats per minute. CONCLUSION: 1. No significant EKG changes with the LexiScan infusion. 2. No LexiScan induced chest pain or cardiac arrhythmia. 3. Normal blood pressure and heart rate response. 4. Sestamibi/sestamibi perfusion scan pending; see separate report. Electronically Signed On 11-13-2022 14:45:02 CDT by Sydney Mora M.D. [id number]
--- NOTE | 2022-11-11 08:48 | NMCV_ITS ---
NM portia perf SPECT r/s* [id number] Marci Andre Age: 62 Gender: F : 1960 Exam Date: 11/11/2022 09:47 Ordering Phys: Vanessa Arroyo MD ([email or web address]) Technologist: VIJAY Velasquez Exam Location: [facility] Indications: RHEUMATIC DISORDERS OF HEART VALVES, HYPERTENSION, CARDIAC MURMUR STRESS TEST Please see separate stress test report in [facility] for full findings IMAGE PROTOCOL Rest/Stress 1 Lexiscan Day Radiopharmaceutical Dose (mCi) Administration Site Administered by Rest: Tc-99m 10.8 IV VIJAY Pruett Sestamimeghann Stress:Tc-99m 32.5 IV VIJAY Pruett Sestamibi Rest: 11-Nov-2022 60 Discovery 630 Stress: 11-Nov-2022 30 Discovery 630 0.4mg Lexiscan. Images obtained in supine and prone position. SPECT RESULTS Technical Quality: Excellent Raw Data Analysis: Normal Image Corrections: No attenuation or motion correction applied Summed Stress Score: 0 Summed Rest Score: 0 Summed Difference Score: 0 PERFUSION FINDINGS SPECT images demonstrate homogeneous tracer distribution throughout the myocardium. FUNCTIONAL RESULTS (calculated via Gated SPECT) Stress Image LV EF (%): 94 Stress EDV (mL):69 TID: 0.8 Stress ESV (mL):4 FUNCTIONAL FINDINGS: The left ventricle is normal in size. Transient Ischemia Dilatation of 0.8. The left ventricular ejection fraction is hyperdynamic with a value of 94%. There is hyperdynamic left ventricular global systolic function. IMPRESSIONS 1. Myocardial perfusion imaging is normal. 2. Overall left ventricular systolic function is hyperdynamic without regional wall motion abnormalities, LVEF=94%. 3. No EKG changes with Lexiscan infusion. 4. Scan indicates low risk for cardiac events. Sydney Mora MD (Electronically Signed) Final Date: 13 November 2022 14:42 S
[2022-11-11] MEDS: regadenoson 0.4 Mg/5 ml Syringe IVP (10:21)
[2022-11-11 10:46] VITALS: BP 154/110; PULSE 89
== END 2022-11-11 08:35 | disposition home or self-care (01) ==
PROVIDERS: PCP Family Medicine; Visit Provider Specialist
DX: R07.9 Chest pain, unspecified (principal)
CPT/HCPCS: 36415; 78452; 93017; 96374; A9500; J2785

== ENCOUNTER → 2023-05-05 10:05 | Outpatient (BNVA) | payer MEDICARE, BC, SELFPAY | PROVIDERS: PCP Family Medicine; Visit Provider Internal Medicine Cardiovascular Disease | DX: I11.0 Hypertensive heart disease with heart failure (principal); I50.32 Chronic diastolic (congestive) heart failure; I73.9 Peripheral vascular disease, unspecified; R00.2 Palpitations; I08.0 Rheumatic disorders of both mitral and aortic valves; M79.604 Pain in right leg; M79.605 Pain in left leg; Z87.891 Personal history of nicotine dependence | CPT/HCPCS: 99214 ==

== ENCOUNTER 2023-05-13 09:12 | Outpatient (CLI) | payer MEDICARE, BC, SELFPAY ==
--- NOTE | 2023-05-13 09:30 | USCV_ITS ---
Marci Andre Age: 63 Gender: F : 1960 Exam Date: 05/13/2023 09:34 Ordering Phys: Ruel Joshi MD ([email or web address]) Technologist: MARY JO [place] [facility] [place]: Pain Risk Factors: Previous Vascular Surgery: RIGHT LEFT BP: 149.0 / 98.00 BP: 142.0/ 90.00 0 0 Waveform Velocity (cm/s) Velocity (cm/s) Waveform Triphasic 76.1 Iliac Prox 63.3 Triphasic Triphasic 65.7 Iliac Mid 59.3 Triphasic Triphasic 74.9 Iliac Distal 55.7 Triphasic Triphasic 83.0 WINDOWS DESKTOP SUPPORT 74.9 Triphasic Triphasic 90.1 SFA Prox 77.6 Triphasic Triphasic 93.1 SFA Mid 77.6 Triphasic Triphasic 77.9 SFA Dist 73.6 Triphasic Triphasic 40.3 POP 51.2 Triphasic Triphasic 72.2 BUNGHOLE BORER 51.3 Triphasic Triphasic 42.5 DPA 52.8 Triphasic FINDINGS ABIs unobtainable due to highly calcified arteries making them noncompressible Intimal thickening and mild diffuse plaques in the femoral and popliteal arteries bilaterally Normal arterial Doppler flow velocities and waveforms Noncompressible ankle vessels bilaterally CONCLUSIONS 1. Patent iliac, femoral, popliteal and infrapopliteal vessels bilaterally 2. Intimal thickening and minimal plaques in the femoral and popliteal arteries bilaterally 3. Features suggesting extensive arterial sclerosis, causing noncompressible ankle vessels bilaterally. ABIs could not be obtained for this reason Dr Ruel Joshi MD [facility] (Electronically Signed) Final Date: 14 May 2023 19:53 S
== END 2023-05-13 09:13 | disposition home or self-care (01) ==
LOC: RAD 09:13
PROVIDERS: PCP Family Medicine; Visit Provider Internal Medicine Cardiovascular Disease
DX: I73.9 Peripheral vascular disease, unspecified (principal); R93.6 Abnormal findings on diagnostic imaging of limbs
CPT/HCPCS: 93925

== ENCOUNTER → 2023-10-14 16:05 | Outpatient (BNVA) | payer MEDICARE, BC, SELFPAY | PROVIDERS: PCP Family Medicine; Visit Provider Internal Medicine Cardiovascular Disease | DX: R06.02 Shortness of breath (principal); I10 Essential (primary) hypertension | CPT/HCPCS: 36415; 80048; 83880 ==

== ENCOUNTER → 2024-04-20 10:06 | Outpatient (BNVA) | payer MEDICARE, BC, SELFPAY | PROVIDERS: PCP Family Medicine; Visit Provider Internal Medicine Cardiovascular Disease | DX: I11.0 Hypertensive heart disease with heart failure (principal); I50.32 Chronic diastolic (congestive) heart failure; I08.0 Rheumatic disorders of both mitral and aortic valves | CPT/HCPCS: 99214 ==

== ENCOUNTER 2024-05-16 12:34 | Outpatient (CLI) | payer MEDICARE, BC, SELFPAY ==
--- NOTE | 2024-05-16 12:45 | USCV_ITS ---
Marci Andre Age: 64 Gender: F : 1960 Exam Date: 05/16/2024 13:09 Ordering Phys: Ruel Joshi MD ([email or web address]) Technologist: CT Exam Location: [facility] [place] Indication: BP: 134 / 88 HR: 70 Rhythm: Sinus Technical Quality: Adequate MEASUREMENTS (Male / Female) Normal Values 2D ECHO LVOT Diameter 2.1 cm LV Ejection Fraction MOD 4C 64.2 % LV Ejection Fraction MOD 2C 67.6 % LV Ejection Fraction 2C AL 71.8 % LA Diameter 4.6 cm RA Systolic Volume 4C AL 39.5 ml RA Systolic Volume 4C MOD 41.9 ml LA Sys Volume AL 78.8 cm cubed LA Sys Volume Index AL 41.2 cm cubed/m squared Aorta at Sinotubular Diameter 2.5 cm IVC Diameter 1.5 cm M-MODE LA Ao Ratio MM 1.8 AV Cusp Separation MM 1.5 cm DOPPLER AV Peak Velocity 293.0 cm/s LVOT Peak Velocity 148.0 cm/s AV Area Cont Eq vti 2.1 cm squared AV Area Cont Eq pk 1.7 cm squared MV Peak Velocity 83.0 cm/s MV Area PHT 4.0 cm squared Mitral E to A Ratio 1.3 TV Peak Velocity 300.0 cm/s TR Peak Velocity 311.5 cm/s TR Peak Gradient 38.8 mmHg TR Mean Velocity 211.0 cm/s TR Mean Gradient 21.3 mmHg TR Velocity Time Integral 70.3 cm TV Peak E Velocity 72.0 cm/s PV Peak Velocity 98.0 cm/s FINDINGS Left Ventricle Normal left ventricular size and systolic function, EF 65%.. No regional wall motion abnormalities. Right Ventricle The right ventricle is normal in size and function. Right Atrium Mildly increased right atrial size. Left Atrium Moderately increased left atrial size. Mitral Valve Mild-moderate mitral valve regurgitation. Aortic Valve Minimally thickened aortic valve. Trace to mild aortic valve regurgitation. Mild aortic valve stenosis, mean gradient 15 mmHg, STEPHANIE 2.1 cm squared. Peak velocity of 2.93 m/s Tricuspid Valve Trace tricuspid valve regurgitation. Pulmonic Valve No gross abnormalities noted Pericardium Normal pericardium without effusion. Aorta Normal ascending aorta dimension. IVC Normal inferior vena cava. CONCLUSIONS Normal left ventricular size and systolic function, EF 65%.. No regional wall motion abnormalities. Moderately increased left atrial size. Mild-moderate mitral valve regurgitation. Mildly increased right atrial size. Mild aortic valve stenosis, mean gradient 15 mmHg, STEPHANIE 2.1 cm squared. Peak velocity of 2.93 m/s. Minimally thickened aortic valve. Trace to mild aortic valve regurgitation. Trace tricuspid valve regurgitation. Estimated pulmonary artery peak systolic pressure 42 mmHg There is no pericardial effusion. There are no intracardiac masses. Compared to the study from 05/11/2022, there may not be a significant change Dr Ruel Joshi MD [facility] (Electronically Signed) Final Date: 17 May 2024 22:56 S
== END 2024-05-16 12:35 | disposition home or self-care (01) ==
LOC: RAD 12:35
PROVIDERS: PCP Family Medicine; Visit Provider Internal Medicine Cardiovascular Disease
DX: R06.09 Other forms of dyspnea (principal); I51.7 Cardiomegaly; I34.0 Nonrheumatic mitral (valve) insufficiency; I35.1 Nonrheumatic aortic (valve) insufficiency; I35.0 Nonrheumatic aortic (valve) stenosis
CPT/HCPCS: 93306

== ENCOUNTER → 2024-06-02 09:29 | Outpatient (BNVA) | payer MEDICARE, BC, SELFPAY | PROVIDERS: PCP Family Medicine; Visit Provider Orthopaedic Surgery | DX: M25.512 Pain in left shoulder (principal); M19.012 Primary osteoarthritis, left shoulder | CPT/HCPCS: 73030; 99204 ==

== ENCOUNTER 2024-11-13 11:59 | Outpatient (CLI) | payer MEDICARE, BC, SELFPAY ==
--- NOTE | 2024-11-13 12:15 | XR_ITS ---
WS: [email or web address] XR knee RT 3V* [id number] REASON FOR EXAM: PRIMARY OSTEOARTHRITIS OF R KNEE FINDINGS: No fracture or focal bone lesion. Significant narrowing of the medial joint space with moderate subchondral sclerosis and marginal osteophytosis. Moderate medial shift of the femur. Deformity of the medial knee joint compartment presumed due to previous tibial plateau fracture. Severe narrowing of the joint space with essentially [id number] articulation, significant subchondral sclerosis, and large osteophytosis. Mild narrowing of the patellofemoral joint space with moderate subchondral sclerosis and osteophytosis of the patella. XR/XR knee RT 3V* [id number] IMPRESSION: Severe osteoarthritis of the right knee with posttraumatic osteoarthritis in th e lateral joint compartment as above.
--- NOTE | 2024-11-13 12:15 | XR_ITS ---
WS: [email or web address] XR ankle RT min 3V* [id number] REASON FOR EXAM: PRIMARY OSTEOARTHRITIS/ANKLE PAIN FINDINGS: Significantly decreased bone density. Right ankle arthroplasty. The components of the arthroplasty are intact and in proper position and alignment. Significant amount of reactive bone which may have autofused the tibiofibular syndesmosis and possibly the ankle joint as well. Examination appears unchanged compared to 04/13/2023. XR/XR ankle RT min 3V* [id number] IMPRESSION: Postoperative right ankle as above.
--- NOTE | 2024-11-13 12:15 | XR_ITS ---
WS: [email or web address] XR lumbar spine 6V w f/e [id number] REASON FOR EXAM: SPONDYLOSIS OF LSPINE REGION W/O MYELOPATHY FINDINGS: Significant decreased bone density. Severe rotatory dextroscoliosis. Mild biconcave compression deformities of the L1-L3. Severe narrowing of the intervertebral disc spaces L1-S1 with possible autofusion at L5-S1. Large vertebral body osteophytosis L1-L5. No spondylolysis. Minimal neutral listhesis of the L2 on L3 which does not change significantly with flexion or extension. XR/XR lumbar spine 6V w f/e [id number] IMPRESSION: Severe degenerative spondylosis in the lumbar spine as above.
== END 2024-11-13 12:00 | disposition home or self-care (01) ==
LOC: RAD 12:03
PROVIDERS: PCP Family Medicine; Visit Provider Student in an Organized Health Care Education/Training Program
DX: M47.817 Spondylosis without myelopathy or radiculopathy, lumbosacral region (principal); M17.11 Unilateral primary osteoarthritis, right knee; M25.571 Pain in right ankle and joints of right foot; M25.78 Osteophyte, vertebrae; M48.07 Spinal stenosis, lumbosacral region
CPT/HCPCS: 72114; 73562; 73610

== ENCOUNTER → 2025-01-15 10:48 | Outpatient (BNVA) | payer MEDICARE, BC, SELFPAY | PROVIDERS: PCP Family Medicine; Visit Provider Internal Medicine Cardiovascular Disease | DX: I11.0 Hypertensive heart disease with heart failure (principal); I50.9 Heart failure, unspecified; I35.0 Nonrheumatic aortic (valve) stenosis; R06.02 Shortness of breath; N18.9 Chronic kidney disease, unspecified; R53.83 Other fatigue; R07.9 Chest pain, unspecified | CPT/HCPCS: 36415; 80048; 83880; 84443; 93005; 99214 ==

== ENCOUNTER 2025-02-09 11:11 | Outpatient (CLI) | payer MEDICARE, BC, SELFPAY ==
[2025-02-09 14:49] LABS: Anion Gap 17.6 (5-19); Blood Urea Nitrogen 21 mg/dL (8-23); Calcium 9.2 mg/dL (8.5-10.5); Carbon Dioxide 20 mmol/L (22-29); Chloride 106 mmol/L (98-107); Glucose 99 mg/dL (65-115); NT Pro B Type Natriuretic Pept 466 pg/mL (0-125); Osmolality Calculated 291 mOsm/kg (285-295); Potassium 4.6 mmol/L (3.5-5.1); Sodium 139 mmol/L (136-145)
== END 2025-02-09 11:12 | disposition home or self-care (01) ==
LOC: LAB 11:13
PROVIDERS: PCP Family Medicine; Visit Provider Internal Medicine Cardiovascular Disease
DX: R06.02 Shortness of breath (principal); I10 Essential (primary) hypertension; I11.0 Hypertensive heart disease with heart failure; I50.32 Chronic diastolic (congestive) heart failure
CPT/HCPCS: 36415; 80048; 83880

== ENCOUNTER 2025-03-02 09:57 | Outpatient (CLI) | payer MEDICARE, BC, SELFPAY ==
[2025-03-02 11:08] LABS: Hematocrit 34.0 % (36-47); Hemoglobin 10.80 g/dL (11.27-16.99); Mean Corpuscular HGB Conc 31.8 g/dL (30-55); Mean Corpuscular Hemoglobin 28.2 pg (27-33); Mean Corpuscular Volume 88.8 fl (85-98); Nucleated Red Blood Cells % 0 %; Platelet Count 195 10^3/cmm (157-399); Red Blood Count 3.83 10^6/uL (3.85-5.65); White Blood Count 6.18 10^3/uL (3.29-11.43)
[2025-03-02 12:09] LABS: Estmated Average Glucose 91; Hemoglobin A1C 4.8 % (4.0-6.0)
== END 2025-03-02 09:58 | disposition home or self-care (01) ==
LOC: LAB 09:57
PROVIDERS: PCP Family Medicine; Visit Provider Orthopaedic Surgery Foot and Ankle Surgery
DX: R79.9 Abnormal finding of blood chemistry, unspecified (principal); M85.9 Disorder of bone density and structure, unspecified; M25.571 Pain in right ankle and joints of right foot; M79.606 Pain in leg, unspecified; M79.89 Other specified soft tissue disorders
CPT/HCPCS: 82306; 83036; 85025; 85651; 86140